=== PATIENT | female | born 1975 | race African-American/Black ===

== ENCOUNTER 2018-04-18 10:37 | Emergency (ER) | payer OTHER ==
[2018-04-18 10:41] VITALS: BP 130/89; PULSE 95; TEMP 97; BMI 32.5
[2018-04-18] MEDS ORDERED: IBUPROFEN 400 MG TABLET (FP) PO ONE (11:08)
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
== END 2018-04-18 11:50 | disposition home or self-care (01) ==
LOC: JERFT 10:37
DX: T14.8XXA Other injury of unspecified body region, initial encounter (principal); Y07.03 Male partner, perpetrator of maltreatment and neglect; Y93.89 Activity, other specified; Y92.89 Other specified places as the place of occurrence of the external cause
CPT/HCPCS: 99281-25

== ENCOUNTER 2018-09-22 09:34 | Emergency (ER) | payer OTHER ==
[2018-09-22 09:43] VITALS: BP 145/81; PULSE 89; TEMP 98.1; BMI 32.5
[2018-09-22] MEDS ORDERED: CYCLOBENZAPRINE HCL 10 MG TABLET (FP) PO ONE (10:56)
[2018-09-22] MEDS ORDERED: LIDOCAINE 5% TOPICAL PATCH TP ONE (10:56)
[2018-09-22] MEDS ORDERED: KETOROLAC TROMETHAMINE 60 MG/2 ML VIAL IM ONE (10:56)
--- NOTE | 2018-09-22 10:56 | PDOC ---
History of Present Illness - General Chief Complaint: Back Pain Stated Complaint: BACK PAIN Time Seen by Provider: 09/22/18 09:44 History Source: Patient Exam Limitations: No Limitations Past History - Travel Traveled outside of the country in the last 30 days: No Close contact w/someone who was outside of country & ill: No - Past Medical History Allergies/Adverse Reactions: Allergies Allergy/AdvReac Type Severity Reaction Status Date / Time No Known Allergies Allergy Verified 04/18/18 10:41 Home Medications: Ambulatory Orders Cyclobenzaprine HCl [Flexeril -] 10 mg PO HS #10 tablet 09/22/18 Lidocaine 5% Patch [Lidoderm -] 1 patch TP DAILY #7 patch 09/22/18 Methylprednisolone [Medrol Dose Brenden] 4 mg PO ASDIR #21 tablet 09/22/18 COPD: No HTN: Yes - Surgical History Appendectomy: Yes Lung Surgery: No - Immunization History Immunization Up to Date: No - Suicide/Smoking/Psychosocial Hx Smoking Status: No Smoking History: Current every day smoker Have you smoked in the past 12 months: No Number of Cigarettes Smoked Daily: 10 Information on smoking cessation initiated: No Hx Alcohol Use: No Drug/Substance Use Hx: No Review of Systems - Review of Systems Able to Perform ROS?: Yes Comments:: 09/22/18 11:22 CONSTITUTIONAL: Absent: fever, chills, diaphoresis, generalized weakness, malaise, loss of appetite GASTROINTESTINAL: Absent: abdominal pain, abdominal distension, nausea, vomiting, diarrhea, constipation, melena, hematochezia GENITOURINARY: Absent: dysuria, frequency, urgency, hesitancy, hematuria, flank pain, genital pain MUSCULOSKELETAL: Present: low back pain radiating down the legs Absent: arthralgia, joint swelling SKIN: Absent: rash, itching, pallor NEUROLOGIC: Absent: headache, focal weakness or paresthesias, dizziness, unsteady gait, seizure, mental status changes, bladder or bowel incontinence PSYCHIATRIC: Absent: anxiety, depression, suicidal or homicidal ideation, hallucinations. Is the patient limited Citizen Of [place] proficient: No *Physical Exam - Vital Signs Last Vital Signs Temp Pulse Resp BP Pulse Ox 98.1 F 89 18 145/81 100 09/22/18 09:39 09/22/18 09:39 09/22/18 09:39 09/22/18 09:39 09/22/18 09:39 - Physical Exam Comments: 09/22/18 11:22 GENERAL: Well developed, well nourished. Awake and alert. No acute distress. HEENT: Normocephalic, atraumatic. PERRLA, EOMI. No conjunctival pallor. Sclera are non- icteric. Moist mucous membranes. Oropharynx is clear. NECK: Supple. Full ROM. No JVD. Carotid pulses 2+ and symmetric, without bruits. No thyromegaly. No lymphadenopathy. CARDIOVASCULAR: Regular rate and rhythm. No murmurs, rubs, or gallops. Distal pulses are 2+ and symmetric. PULMONARY: No evidence of respiratory distress. Lungs clear to auscultation bilaterally. No wheezing, rales or rhonchi. ABDOMINAL: Soft. Non-tender. Non-distended. No rebound or guarding. No organomegaly. Normoactive bowel sounds. MUSCULOSKELETAL Normal range of motion at all joints. No bony deformities or tenderness. No CVA tenderness. EXTREMITIES: No cyanosis. No clubbing. No edema. No calf tenderness. SKIN: Warm and dry. Normal capillary refill. No rashes. No jaundice. NEUROLOGICAL: Alert, awake, appropriate. Cranial nerves 2-12 intact. No deficits to light touch and temperature in face, upper extremities and lower extremities. No motor deficits in the in face, upper extremities and lower extremities. Normoreflexic in the upper and lower extremities. Normal speech. Toes are down- going bilaterally. Gait is normal without ataxia. PSYCHIATRIC: Cooperative. Good eye contact. Appropriate mood and affect. Moderate Sedation - Procedure Monitoring Vital Signs: Procedure Monitoring Vital Signs Temperature 98.1 F 09/22/18 09:39 Pulse Rate 89 09/22/18 09:39 Respiratory Rate 18 09/22/18 09:39 Blood Pressure 145/81 09/22/18 09:39 O2 Sat by Pulse Oximetry (%) 100 09/22/18 09:39 Medical Decision Making - Medical Decision Making 09/22/18 11:23 -Pt with TTP of the L and R paraspinous muscles, L3-L5, with palpable knot consistent with muscle spasm. -No trauma, or fever. No saddle anesthesia or bladder/bowel incontinence. No CVA tenderness. -Pt is neurologically intact on exam with no focal findings. -Toradol, flexeril, and lidocaine patches given with relief of symptoms -DC home. Ortho follow up given for if symptoms do not resolve. -I discussed the physical exam findings, ancillary test results and final diagnoses with the patient. I answered all of the patient's questions. The patient was satisfied with the care received and felt comfortable with the discharge plan and treatment plan. The Patient agrees to follow up with the primary care physician/specialist within 24-72 hours. Return precautions were given. *DC/Admit/Observation/Transfer Diagnosis at time of Disposition: Low back pain Qualifiers: Chronicity: acute Back pain laterality: bilateral Sciatica presence: with sciatica Sciatica laterality: sciatica of right side Qualified Code(s): M54.41 - Lumbago with sciatica, right side - Discharge Dispostion Disposition: HOME Condition at time of disposition: Stable Decision to Admit order: No - Prescriptions Prescriptions: Cyclobenzaprine HCl [Flexeril -] 10 mg PO HS #10 tablet Lidocaine 5% Patch [Lidoderm -] 1 patch TP DAILY #7 patch Methylprednisolone [Medrol Dose Brenden] 4 mg PO ASDIR #21 tablet - Referrals Referrals: Neelam Clemente MD [Primary Care Provider] - Malik Hope DO [Staff Physician] - - Patient Instructions Printed Discharge Instructions: DI for Low Back Pain Additional Instructions: You have low back pain due to a muscle spasm. Please take the medrol dose pack as prescribed. You were also prescribed Flexeril. Please take this medication every 8 hours for the first day. Then take the medication before you go to bed. Do not drive after taking this medication as it may make you sleepy. You may use warm compresses on your back to help with her symptoms. You may also use the lidocaine patches daily Please follow-up with your primary care doctor. If your symptoms do not resolve in 3-5 days, follow-up with orthopedics. A referral has been provided for you. Return to the emergency department if you have worsening back pain, bladder or bowel incontinence, numbness and tingling in her legs, changes in the way you walk, or any new or worsening symptoms. - Post Discharge Activity Forms/Work/School Notes: Back to Work
[2018-09-22] MEDS ORDERED: KETOROLAC TROMETHAMINE 60 MG/2 ML VIAL ONE (11:03)
[2018-09-22] MEDS ORDERED: CYCLOBENZAPRINE HCL 10 MG TABLET (FP) ONE (11:03)
[2018-09-22] MEDS ORDERED: LIDOCAINE 5% TOPICAL PATCH ONE (11:03)
[2018-09-22] MEDS ORDERED: LIDOCAINE PATCH REMOVAL MC SCH (22:00)
== END 2018-09-22 11:25 | disposition home or self-care (01) ==
LOC: JERFT 09:34
PROC: 3E0233Z Introduction of Anti-inflammatory into Muscle, Percutaneous Approach (ICD-10-PCS; principal; 2018-09-22)
DX: M54.41 Lumbago with sciatica, right side (principal); I10 Essential (primary) hypertension; F17.210 Nicotine dependence, cigarettes, uncomplicated
CPT/HCPCS: 99281-25

== ENCOUNTER 2019-08-05 19:01 | Emergency (ER) | payer OTHER ==
[2019-08-05 19:15] VITALS: BP 143/87; PULSE 79; TEMP 98.5; BMI 33.5
--- NOTE | 2019-08-05 19:15 | PDOC ---
Rapid Medical Evaluation Time Seen by Provider: 08/05/19 19:11 Medical Evaluation: Allergies Allergy/AdvReac Type Severity Reaction Status Date / Time No Known Allergies Allergy Verified 04/18/18 10:41 08/05/19 19:12 I have performed a brief in-person evaluation of this patient Chief complaint: h/o HTN, sciatica c/o R buttock pain radiating to toes with numbness and tingling x 5 days worsening over past 24 hours. denies trauma, f/ c. has not taken pain meds. Pertinent PE findings: stable, NAD, non-focal I have ordered the following: none The patient will proceed to the ED for further evaluation. I have performed a brief in-person evaluation of this patient. Discharge Disposition - Diagnosis Sciatica - Referrals - Patient Instructions - Post Discharge Activity
[2019-08-05] MEDS ORDERED: KETOROLAC TROMETHAMINE 60 MG/2 ML VIAL IM ONE (20:03)
[2019-08-05] MEDS ORDERED: KETOROLAC TROMETHAMINE 60 MG/2 ML VIAL ONE (20:08)
[2019-08-05] MEDS ORDERED: METHOCARBAMOL 500 MG TABLET ONE (20:11)
[2019-08-05] MEDS ORDERED: METHOCARBAMOL 750 MG TABLET PO ONE (20:15)
[2019-08-05] MEDS ORDERED: LIDOCAINE 5% TOPICAL PATCH TP ONE (20:17)
[2019-08-05] MEDS ORDERED: LIDOCAINE 5% TOPICAL PATCH ONE (20:23)
--- NOTE | 2019-08-05 20:27 | PDOC ---
History of Present Illness - General Chief Complaint: Pain, Acute Stated Complaint: R LEG PAIN Time Seen by Provider: 08/05/19 19:11 History Source: Patient Exam Limitations: No Limitations Past History - Past Medical History Allergies/Adverse Reactions: Allergies Allergy/AdvReac Type Severity Reaction Status Date / Time No Known Allergies Allergy Verified 08/05/19 19:13 Home Medications: Ambulatory Orders Cyclobenzaprine HCl [Flexeril -] 10 mg PO HS #10 tablet 09/22/18 Lidocaine 5% Patch [Lidoderm -] 1 patch TP DAILY #7 patch 09/22/18 Methylprednisolone [Medrol Dose Brenden] 4 mg PO ASDIR #21 tablet 09/22/18 Methocarbamol [Robaxin -] 1,500 mg PO QID PRN #24 tablet 08/05/19 COPD: No HTN: Yes - Surgical History Appendectomy: Yes Lung Surgery: No - Immunization History Immunization Up to Date: No - Psycho Social/Smoking Cessation Hx Smoking Status: No Smoking History: Current some day smoker Have you smoked in the past 12 months: No Number of Cigarettes Smoked Daily: 2 Information on smoking cessation initiated: No Hx Alcohol Use: No Drug/Substance Use Hx: No *Physical Exam - Vital Signs Last Vital Signs Temp Pulse Resp BP Pulse Ox 98.5 F 79 18 143/87 97 08/05/19 19:13 08/05/19 19:13 08/05/19 19:13 08/05/19 19:13 08/05/19 19:13 - Physical Exam General Appearance: No: Apparent Distress Gastrointestinal/Abdominal: positive: Normal Bowel Sounds, Soft. negative: Tender, Distended, Guarding, Rebound Musculoskeletal: positive: Other (+SLR on RLE). negative: CVA Tenderness, Muscle Spasm, Vertebral Tenderness Neurologic: positive: Alert, Normal Mood/Affect, Motor Strength 5/5, Other ( normal gait) ED Treatment Course - Medications Given in the ED: ED Medications Discontinued Medications Generic Name Dose Route Start Last Admin Trade Name Freq PRN Reason Stop Dose Admin Ketorolac Tromethamine 60 mg 08/05/19 20:03 08/05/19 20:16 Toradol Injection - IM 08/05/19 20:04 60 mg ONCE ONE Administration Methocarbamol 1,500 mg 08/05/19 20:15 08/05/19 20:16 Robaxin - PO 08/05/19 20:16 1,500 mg ONCE ONE Administration Medical Decision Making - Medical Decision Making 43 y/o F hx of sciatica, HTN presents with R buttock pain radiating down R leg from 5 days ago. Was told in [place] she had sciatica, but has never had MRI done of her spine. Denies recent trauma, fall, heavy work, sob, cp, abd pain, n/v, hematuria, dysuria, weakness of extremities. In the past, she received Lido patch and Toradol which helped. Has not tried any medication at home for pain. Has f/u with her PCP in 2 days but came here as could not deal with pain Sciatic pain Given Toradol, lido patch, robaxin stable for dc 08/05/19 20:22 Discharge - Discharge Information Problems reviewed: Yes Clinical Impression/Diagnosis: Sciatica Qualifiers: Laterality: right Qualified Code(s): M54.31 - Sciatica, right side Condition: Stable Disposition: HOME - Admission No - Additional Discharge Information Prescriptions: Methocarbamol [Robaxin -] 1,500 mg PO QID PRN #24 tablet PRN Reason: Muscle Spasms Prescription Drug Monitoring Program (I-STOP) results: I-STOP not reviewed - Follow up/Referral - Patient Discharge Instructions Patient Printed Discharge Instructions: DI for Sciatica Additional Instructions: Thank you for choosing [facility]. It was a pleasure taking care of you. You may take Motrin 600 mg every 6 hours by mouth as needed for mild to moderate pain. Take Motrin with food. Take Robaxin as needed for muscle spasms. This medication can also make you drowsy so please be cautious with driving or performing heavy physical work. Follow-up with your doctor for further evaluation Return to the Emergency Department if your symptoms worsen or persist, you have fever, shortness of breath, chest pain, severe abdominal pain, vomiting, weakness of extremities (arms and/or legs), unable to control bowel or bladder movements or other concerning symptoms. - Post Discharge Activity
== END 2019-08-05 20:31 | disposition home or self-care (01) ==
LOC: JERFT 19:01
PROC: 3E0233Z Introduction of Anti-inflammatory into Muscle, Percutaneous Approach (ICD-10-PCS; principal; 2019-08-05)
DX: M54.31 Sciatica, right side (principal); I10 Essential (primary) hypertension; Z72.0 Tobacco use
CPT/HCPCS: 99281-25

== ENCOUNTER 2021-06-18 16:48 | Emergency (ER) | payer OTHER ==
[2021-06-18 17:13] VITALS: BP 138/70; PULSE 60; TEMP 98.3; BMI 33.5
[2021-06-18] MEDS ORDERED: KETOROLAC TROMETHAMINE 30 MG/1 ML VIAL IM ONE (18:28)
[2021-06-18] MEDS ORDERED: LIDOCAINE 5% TOPICAL PATCH TP ONE (18:30)
[2021-06-18] MEDS ORDERED: KETOROLAC TROMETHAMINE 30 MG/1 ML VIAL ONE (18:37)
[2021-06-18] MEDS ORDERED: LIDOCAINE 5% TOPICAL PATCH ONE (18:37)
[2021-06-18] MEDS ORDERED: LIDOCAINE PATCH REMOVAL MC ONE (22:00)
== END 2021-06-18 18:53 | disposition home or self-care (01) ==
LOC: JER 16:48 → JERFT 16:48
PROC: 3E0233Z Introduction of Anti-inflammatory into Muscle, Percutaneous Approach (ICD-10-PCS; principal; 2021-06-18)
DX: M54.50 Low back pain, unspecified (principal); V43.52XA Car driver injured in collision with other type car in traffic accident, initial encounter
CPT/HCPCS: 99284-25

== ENCOUNTER 2022-10-07 23:25 | Emergency (ER) | payer OTHER ==
[2022-10-07 23:31] VITALS: BP 118/66; PULSE 75; RESP 18; TEMP 97.6; BMI 32.5
[2022-10-08] MEDS ORDERED: ACETAMINOPHEN 500 MG TABLET (FP) PO ONE (00:09)
== END 2022-10-08 02:00 | disposition home or self-care (01) ==
LOC: JERFT 23:25
DX: S05.12XA Contusion of eyeball and orbital tissues, left eye, initial encounter (principal); M54.2 Cervicalgia; Y04.8XXA Assault by other bodily force, initial encounter
CPT/HCPCS: 70450-TC; 70486-TC; 72125-TC; 99284-25

== ENCOUNTER 2024-08-05 11:27 | Emergency (ER) | payer OTHER ==
[2024-08-05 11:44] VITALS: RESP 16; TEMP 97.9
[2024-08-05 13:47] LABS: BASO % 0.9 % (0-2.0); EOS % 0.9 % (0-4.5); HEMATOCRIT 38.3 % (32.4-45.2); HEMOGLOBIN 12.8 GM/dL (10.7-15.3); MCH 29.4 pg (25.7-33.7); MCHC 33.5 g/dl (32.0-36.0); MEAN CELL VOLUME 87.6 fl (80-96); MEAN PLT VOLUME 6.7 fl (7.5-11.1); MONO % 6.1 % (3.8-10.2); NEUT % 69.1 % (42.8-82.8); PLATELET COUNT 371 10^3/uL (134-434); RBC 4.37 M/mm3 (3.60-5.2); RDW 14.1 % (11.6-15.6); WHITE BLOOD COUNT 8.5 K/mm3 (4.0-10.0)
[2024-08-05 13:53] LABS: INR 0.97 (0.83-1.09)
[2024-08-05 13:56] LABS: ACTIVATED PTT 31.2 SECONDS (25.2-36.5)
[2024-08-05 14:07] LABS: POTASSIUM 5.8 mmol/L (3.5-5.1)
[2024-08-05 14:09] LABS: CALCIUM 8.8 mg/dL (8.5-10.1)
[2024-08-05 14:10] LABS: BLOOD UREA NITROGEN 10.6 mg/dL (7-18); MAGNESIUM 2.1 mg/dL (1.8-2.4)
[2024-08-05 14:13] LABS: CREATININE 0.7 mg/dL (0.55-1.3)
[2024-08-05 14:14] LABS: BILIRUBIN,TOTAL 0.6 mg/dL (0.2-1)
[2024-08-05 14:29] LABS: ALBUMIN 3.2 g/dl (3.4-5.0)
[2024-08-05 14:32] VITALS: BP 134/89; PULSE 84
[2024-08-05 16:56] LABS: POTASSIUM 3.4 mmol/L (3.5-5.1)
[2024-08-05 16:58] LABS: CALCIUM 8.8 mg/dL (8.5-10.1)
[2024-08-05 16:59] LABS: BLOOD UREA NITROGEN 10.8 mg/dL (7-18)
[2024-08-05 17:02] LABS: CREATININE 0.5 mg/dL (0.55-1.3)
[2024-08-05] MEDS ORDERED: POTASSIUM CHLORIDE TABS 20 MEQ TABLET.ER (FP) PO ONE (17:26)
[2024-08-05] MEDS: POTASSIUM CHLORIDE ORAL LIQUID 20 MEQ/15 ML PO ONE (17:26)
[2024-08-05] MEDS: POTASSIUM CHLORIDE TABS 20 MEQ TABLET.ER (FP) PO ONE (17:27)
== END 2024-08-05 17:30 | disposition home or self-care (01) ==
LOC: JER 11:27
DX: R07.89 Other chest pain (principal); R06.02 Shortness of breath; R53.1 Weakness; R00.0 Tachycardia, unspecified; R42 Dizziness and giddiness; R20.2 Paresthesia of skin
CPT/HCPCS: 36415; 71046-TC-FY; 71275-TC; 80048; 80053; 83735; 84484; 84703; 85025; 85379; 85610; 85730; 93005; 93010; 99285-25; Q9967